=== PATIENT | male | born 1945 | race African-American/Black ===

== ENCOUNTER 2019-05-08 08:33 | Inpatient (IN) | payer MEDICARE, MEDICAID ==
[~2019-05-08] VITALS: Ht 182.2 cm; Wt 80.3 kg
[2019-05-08] MEDS ORDERED: ASPIRIN 81MG TABLET PO ONE (09:30)
[2019-05-08 10:09] LABS: BASOPHILS % 0.8 % (0.0-2.0); EOSINOPHILS % 0.5 % (0.0-5.0); HEMOGLOBIN. 13.6 g/dL (14.0-18.0); LYMPHOCYTES % 16.7 % (20.0-50.0); MEAN CORPUSCULAR VOLUME 85.2 fL (80.0-94.0); MEAN PLATELET VOLUME 7.3 fl (7.4-10.4); MONOCYTES % 7.1 % (2.0-8.0); NEUTROPHILS % 74.9 % (40.0-76.0); PLATELET 359 x1000/uL (130-400); RED BLOOD CELL COUNT 4.69 mill/uL (4.7-6.1); RED CELL DISTRIBUTION WIDTH 15.8 % (11.6-14.6)
[2019-05-08 10:12] LABS: CHLORIDE 104 mEq/L (98-107)
[2019-05-08] MEDS ORDERED: GUAIFENESIN 200MG/10ML SUGAR FREE UDC PO PRN (12:45)
[2019-05-08] MEDS ORDERED: ONDANSETRON HCL 4MG/2ML INJ IV PRN (12:45)
[2019-05-08] MEDS ORDERED: KETOROLAC 15MG/ML VIAL IV PRN (12:45)
[2019-05-08] MEDS ORDERED: LORAZEPAM 0.5MG TABLET PO PRN (12:45)
[2019-05-08] MEDS ORDERED: ACETAMINOPHEN 325MG TABLET PO PRN (12:45)
[2019-05-08] MEDS ORDERED: CLONIDINE 0.1MG TABLET PO PRN (12:45)
[2019-05-08] MEDS ORDERED: IPRATROPIUM/ALBUTEROL 0.5-3(2.5)MG/3ML NEB NEB PRN (12:45)
[2019-05-08] MEDS ORDERED: NITROGLYCERIN 0.4MG TABLET SL SL PRN (12:45)
[2019-05-08] MEDS ORDERED: DOCUSATE SODIUM 100MG CAPSULE PO PRN (12:45)
[2019-05-08] MEDS ORDERED: MAGNESIUM/ALUMINUM HYDROXIDE/SIMETHICONE 30ML UDC PO PRN (12:45)
[2019-05-08] MEDS ORDERED: ENOXAPARIN 40MG/0.4ML SYR SUBCUT SCH (12:45)
[2019-05-08] MEDS ORDERED: ENOXAPARIN 40MG/0.4ML SYR SUBCUT ONE (12:51)
[2019-05-08 15:36] LABS: ETHANOL BLOOD < 10 mg/dL
[2019-05-08 15:38] LABS: TOTAL IRON BINDING CAPACITY 245 ug/dL (250-450)
[2019-05-08 15:39] LABS: LDL CHOLESTEROL 97 mg/dL (5-100)
[2019-05-08 15:40] LABS: HDL CHOLESTEROL 39 mg/dL (40-59)
[2019-05-08 15:44] LABS: CREATINE KINASE 202 IU/L (39-308)
[2019-05-08 15:56] LABS: FOLIC ACID (FOLATE) SERUM 11.9 ng/mL (>5.38)
[2019-05-08 16:35] VITALS: BP 125/70
[2019-05-08 18:00] VITALS: BP 125/70
[2019-05-08] MEDS: TRAMADOL 50MG TABLET PO PRN (18:28)
[2019-05-08 20:00] VITALS: BP 146/76
[2019-05-08] MEDS ORDERED: ZOLPIDEM TARTRATE 5MG TABLET PO PRN (21:00)
[2019-05-08] MEDS: FAMOTIDINE 20MG TABLET PO SCH (21:32)
[2019-05-08] MEDS: METOPROLOL TARTRATE 25MG TABLET PO SCH (21:32)
[2019-05-09] VITALS (8 sets, daily range): BP systolic 112–151; BP diastolic 48–80
[2019-05-09] MEDS: METOPROLOL TARTRATE 25MG TABLET PO SCH ×2 (08:18→20:51)
[2019-05-09] MEDS: ASPIRIN 325MG EC TABLET PO SCH (08:18)
[2019-05-09] MEDS: FAMOTIDINE 20MG TABLET PO SCH ×2 (08:18→20:51)
[2019-05-09] MEDS: ENOXAPARIN 40MG/0.4ML SYR SUBCUT SCH (08:19)
[2019-05-09 14:16] LABS: *AMPHETAMINES SCREEN URINE NEGATIVE (NEGATIVE); *BARBITURATES SCREEN URINE NEGATIVE (NEGATIVE)
[2019-05-09 14:17] LABS: *BENZODIAZEPINES SCREEN URINE NEGATIVE (NEGATIVE); *COCAINE SCREEN URINE PRESUMTIVE POSITIVE (NEGATIVE); CANNABINOID URINE SCREEN NEGATIVE (NEGATIVE); METHADONE URINE SCREEN NEGATIVE (NEGATIVE); OPIATES URINE SCREEN NEGATIVE (NEGATIVE); PHENCYCLIDINE URINE SCREEN NEGATIVE (NEGATIVE)
[2019-05-09] MEDS: TRAMADOL 50MG TABLET PO PRN (16:53)
[2019-05-09] MEDS ORDERED: PNEUMOCOCCAL 23-VAL P-SAC VAC 0.5 ML IM ONE (17:00)
[2019-05-10] VITALS: BP 138/62
[2019-05-10 04:00] VITALS: BP 96/54
[2019-05-10 08:00] VITALS: BP 133/82
[2019-05-10] MEDS: ASPIRIN 325MG EC TABLET PO SCH (09:36)
[2019-05-10] MEDS: METOPROLOL TARTRATE 25MG TABLET PO SCH ×2 (09:36→22:07)
[2019-05-10] MEDS: FAMOTIDINE 20MG TABLET PO SCH ×2 (09:36→22:08)
[2019-05-10] MEDS: ENOXAPARIN 40MG/0.4ML SYR SUBCUT SCH (11:03)
[2019-05-10 11:54] VITALS: BP 103/66
[2019-05-10 16:00] VITALS: BP 134/75
[2019-05-10 20:00] VITALS: BP 149/98
[2019-05-11 00:29] VITALS: BP 128/76
[2019-05-11 04:33] VITALS: BP 130/68
[2019-05-11 08:00] VITALS: BP 142/61
[2019-05-11] MEDS: ASPIRIN 325MG EC TABLET PO SCH (08:17)
[2019-05-11] MEDS: FAMOTIDINE 20MG TABLET PO SCH (08:17)
[2019-05-11] MEDS: METOPROLOL TARTRATE 25MG TABLET PO SCH (08:17)
[2019-05-11] MEDS: ENOXAPARIN 40MG/0.4ML SYR SUBCUT SCH (08:18)
[2019-05-11 12:00] VITALS: BP 114/73
== END 2019-05-11 14:34 | DRG 192 ==
LOC: ER 08:33 → EDBEDREQ 12:03 → SUPCPDRO 12:32 → ENRESERV 15:51 → 5WST 16:36
PROVIDERS: ADMIT Internal Medicine; ATTEND Internal Medicine
DX: J44.1 Chronic obstructive pulmonary disease with (acute) exacerbation (principal); D63.8 Anemia in other chronic diseases classified elsewhere; F17.210 Nicotine dependence, cigarettes, uncomplicated; I10 Essential (primary) hypertension; R07.89 Other chest pain; I25.2 Old myocardial infarction; Z59.0 Homelessness
CPT/HCPCS: 36415; 71045; 73130; 80053; 80061; 80305; 80320; 82550; 82553; 82607; 82746; 83036; 83540; 83550; 83880; 84443; 84484; 85025; 93005; 93306; 93970; 99285; J1650; J1885; G0480

== ENCOUNTER 2025-03-24 08:53 | Inpatient (IN) | payer MEDICARE, MEDICAID ==
[~2025-03-24] VITALS: Ht 172.7 cm; Wt 77.6 kg
[~2025-03-24 08:53] MED LIST: AMLO10TA80 PO; KEPP500 MT; LIP40 PO; LOSA25TA26 PO
[2025-03-24 09:53] LABS: BASOPHILS % 0.6 % (0.0-2.0); EOSINOPHILS % 0.3 % (0.0-5.0); HEMATOCRIT. 42.1 % (42.0-52.0); HEMOGLOBIN. 13.7 g/dL (14.0-18.0); LYMPHOCYTES % 15.2 % (20.0-50.0); MEAN PLATELET VOLUME 7.7 fl (7.4-10.4); MONOCYTES % 5.8 % (2.0-8.0); NEUTROPHILS % 78.1 % (40.0-76.0); PLATELET 311 x1000/uL (130-400); RED BLOOD CELL COUNT 4.73 mill/uL (4.7-6.1); RED CELL DISTRIBUTION WIDTH 15.4 % (11.6-14.6)
[2025-03-24 10:07] LABS: CREATININE 0.9 mg/dL (0.6-1.3)
[2025-03-24 10:08] LABS: ETHANOL BLOOD < 10 mg/dL (<10); UREA NITROGEN BLOOD 7 mg/dL (9-23)
[2025-03-24 10:09] LABS: ASPARTATE AMINOTRANSFERASE 39 IU/L (<34)
[2025-03-24 10:10] LABS: BILIRUBIN DIRECT 0.2 mg/dL (<=3.0); BILIRUBIN TOTAL 0.6 mg/dL (0.1-1.0); PROTEIN TOTAL 8.1 g/dL (6.0-8.3)
[2025-03-24] MEDS: LEVETIRACETAM 1000MG PREMIX 100 ML IV ONE (10:14)
[2025-03-24] MEDS: DEXTROSE 50% WATER 50ML SYRINGE IV ONE (10:45)
[2025-03-24] MEDS: INSULIN REGULAR (HUMULIN R) 1000UNITS/10ML VIAL IV ONE (10:49)
[2025-03-24] MEDS: ALBUTEROL (0.5%) 2.5MG/0.5ML NEB HHN ONE (10:59)
[2025-03-24 12:00] VITALS: PULSE 98; RESP 18; O2SAT 98
[2025-03-24] MEDS ORDERED: ONDANSETRON HCL 4MG/2ML INJ IV PRN (13:00)
[2025-03-24] MEDS ORDERED: GUAIFENESIN 200MG/10ML SUGAR FREE UDC PO PRN (13:00)
[2025-03-24] MEDS ORDERED: DOCUSATE SODIUM 100MG CAPSULE PO PRN (13:00)
[2025-03-24] MEDS ORDERED: ACETAMINOPHEN 325MG TABLET PO PRN (13:00)
[2025-03-24] MEDS ORDERED: MAGNESIUM/ALUMINUM HYDROXIDE/SIMETHICONE 30ML UDC PO PRN (13:00)
[2025-03-24] MEDS ORDERED: LORAZEPAM 2MG/ML UD SYRINGE IV PRN (14:15)
[2025-03-24] MEDS ORDERED: DEXTROSE 50% WATER 50ML SYRINGE IV PRN (14:30)
[2025-03-24] MEDS ORDERED: NALOXONE HCL 1MG/ML 2ML VIAL IV SCH ×2 (14:45)
[2025-03-24 15:07] LABS: BG BASE EXCESS 0.0 mmol/L (-2.0-3.0); BG CARBOXYHEMOGLOBIN 0.3 % (0.5-1.5); BG DEOXYHEMOGLOBIN 4.0 % (0.0-5.0); BG FRACTION INSPIRED OXYGEN 21; BG HCO3 ACT 23.3 mmol/L (21.0-28.0); BG METHEMOGLOBIN 0.2 % (0.5-1.5); BG OXYGEN SATURATION 96.0 % (94.0-98.0); BG OXYHEMOGLOBIN 95.5 % (94.0-98.0); BG PCO2 33.9 mmHg (35.0-48.0); BG PH 7.455 (7.350-7.450); BG PO2 80.4 mmHg (83.0-108.0); BG SAMPLE SITE RIGHT BRACHIAL; BG TOTAL HEMOGLOBIN 14.2 g/dL (13.5-17.5); BG VENT MODE ROOM AIR
[2025-03-24] MEDS: IPRATROPIUM/ALBUTEROL 0.5-3(2.5)MG/3ML NEB HHN PRN (17:15)
[2025-03-24 17:16] VITALS: PULSE 78; RESP 22; O2SAT 96
[2025-03-24 20:00] VITALS: BP 144/70; PULSE 96; RESP 18; TEMP 36.2; O2SAT 98
[2025-03-24] MEDS: DEXT 5%/0.45% NACL 1000ML 1,000 ML IV SCH (21:00)
[2025-03-24] MEDS ORDERED: LEVETIRACETAM 1,500MG in NACL 100ML PREMIX IV SCH (21:00)
[2025-03-24] MEDS: LEVETIRACETAM 1,250 MG in SODIUM CHLORIDE 0.9% 100 ML IV SCH (21:28)
[2025-03-25] VITALS (7 sets, daily range): BP systolic 129–184; BP diastolic 60–105; PULSE 60–97; RESP 16–24; TEMP 35.6–36.974; O2SAT 95–100
[2025-03-25 06:53] LABS: BASOPHILS % 0.2 % (0.0-2.0); EOSINOPHILS % 0.3 % (0.0-5.0); HEMATOCRIT. 39.9 % (42.0-52.0); HEMOGLOBIN. 13.2 g/dL (14.0-18.0); LYMPHOCYTES % 10.8 % (20.0-50.0); MEAN PLATELET VOLUME 8.0 fl (7.4-10.4); MONOCYTES % 7.1 % (2.0-8.0); NEUTROPHILS % 81.6 % (40.0-76.0); PLATELET 285 x1000/uL (130-400); RED BLOOD CELL COUNT 4.54 mill/uL (4.7-6.1); RED CELL DISTRIBUTION WIDTH 15.1 % (11.6-14.6)
[2025-03-25 07:01] LABS: CREATININE 0.8 mg/dL (0.6-1.3); UREA NITROGEN BLOOD 6 mg/dL (9-23)
[2025-03-25] MEDS: DEXTROSE 5% WATER 1,000 ML IV SCH (08:45)
[2025-03-25] MEDS ORDERED: CEFEPIME 1GM IN DEXT 5% 50ML IV SCH (09:00)
[2025-03-25] MEDS: PANTOPRAZOLE SODIUM 40 MG/VIAL IV SCH (09:20)
[2025-03-25] MEDS: KCL 20MEQ/100ML PREMIX 100 ML IV SCH (12:41)
[2025-03-25] MEDS: LACTULOSE 20G/30ML UDC PO SCH (14:00)
[2025-03-25 14:29] LABS: HEPATITIS A AB IGM NEGATIVE (Negative); HEPATITIS B CORE AB IGM NEGATIVE (Negative)
[2025-03-25 14:30] LABS: HEPATITIS C AB NON REACTIVE (Neg) (Negative)
[2025-03-25] MEDS: CEFEPIME 2GM/100ML 100 ML IV SCH (14:30)
[2025-03-25] MEDS: AMLODIPINE 10MG TABLET PO SCH (16:56)
[2025-03-25] MEDS: LACTULOSE ENEMA 1,000ML BOTTLE PR SCH (20:00)
[2025-03-26] VITALS: BP 159/90; PULSE 88; RESP 18; TEMP 36.7; O2SAT 98
[2025-03-26 04:00] VITALS: BP 156/80; PULSE 84; RESP 18; TEMP 37; O2SAT 99
[2025-03-26 08:00] VITALS: BP 187/110; PULSE 94; RESP 20; TEMP 36.3; O2SAT 98
[2025-03-26] MEDS: ACETAMINOPHEN 325MG TABLET PO PRN (11:41)
[2025-03-26 12:00] VITALS: BP 140/119; PULSE 65; RESP 15; TEMP 36.3; O2SAT 97
[2025-03-26] MEDS: ENOXAPARIN 80MG/0.8ML SYR SUBCUT SCH (12:50)
[2025-03-26] MEDS ORDERED: NALOXONE HCL 0.4MG/ML VIAL IV PRN (15:45)
[2025-03-26 16:00] VITALS: BP 147/72; PULSE 97; RESP 15; TEMP 36.4; O2SAT 97
[2025-03-26] MEDS ORDERED: POLYETHYLENE GLYCOL 3350 (17GM) 1 DOSE PACK PO PRN (17:15)
[2025-03-26] MEDS: LOSARTAN 50 MG TABLET PO SCH (17:47)
[2025-03-26] MEDS: TAMSULOSIN HCL 0.4MG SR CAPSULE PO SCH (19:37)
[2025-03-26 20:00] VITALS: BP 149/79; PULSE 78; RESP 18; TEMP 36.3; O2SAT 99
[2025-03-26] MEDS: MORPHINE SULFATE 2 MG/ML INJ (NOT FOR IM USE) IV PRN (20:57)
[2025-03-26] MEDS: TRAZODONE HCL 50MG TABLET PO PRN (20:57)
[2025-03-26] MEDS: MELATONIN 3MG TABLET PO SCH (20:58)
[2025-03-27] VITALS: BP 157/85; PULSE 85; RESP 18; TEMP 36; O2SAT 99
[2025-03-27 02:18] LABS: CREATININE 0.7 mg/dL (0.6-1.3); UREA NITROGEN BLOOD < 5 mg/dL (9-23)
[2025-03-27 04:00] VITALS: BP 135/72; PULSE 81; RESP 18; TEMP 36.3; O2SAT 98
[2025-03-27] MEDS: POTASSIUM CHLORIDE 40 MEQ in DEXTROSE 5% WATER 980 ML IV SCH (04:50)
[2025-03-27 06:59] LABS: PLATELET 256 x1000/uL (130-400); RED BLOOD CELL COUNT 4.23 mill/uL (4.7-6.1); RED CELL DISTRIBUTION WIDTH 14.8 % (11.6-14.6)
[2025-03-27 07:09] LABS: CREATININE 0.6 mg/dL (0.6-1.3); UREA NITROGEN BLOOD < 5 mg/dL (9-23)
[2025-03-27 08:00] VITALS: BP 133/77; PULSE 79; RESP 16; TEMP 36.3; O2SAT 99
[2025-03-27] MEDS: ENOXAPARIN 80MG/0.8ML SYR SUBCUT NR (10:45)
[2025-03-27] MEDS: MAGNESIUM 1 G PREMIX 100 ML IV NR (11:21)
[2025-03-27 12:00] VITALS: BP 133/69; PULSE 75; RESP 16; TEMP 36.4; O2SAT 98
[2025-03-27 16:00] VITALS: BP 119/74; PULSE 77; RESP 18; TEMP 36.6; O2SAT 97
[2025-03-27] MEDS ORDERED: DEXT 5%/0.9% NACL 1,000 ML IV SCH (18:15)
[2025-03-27 20:00] VITALS: BP 135/71; PULSE 59; RESP 18; TEMP 36.2; O2SAT 94
[2025-03-27] MEDS ORDERED: LACTULOSE ENEMA 1,000ML BOTTLE PR NR (20:00)
[2025-03-27] MEDS: DEXT 5%/0.45% NACL 1000ML 1,000 ML IV SCH (20:08)
[2025-03-27 22:19] LABS: COLOR URINE YELLOW (YELLOW)
[2025-03-27 22:20] LABS: GLUCOSE URINE NEGATIVE (NEGATIVE); KETONES URINE NEGATIVE (NEGATIVE); LEUKOCYTE ESTERASE URINE 3+ (NEGATIVE); NITRITE URINE POSITIVE (NEGATIVE); OCCULT BLOOD URINE TRACE (NEGATIVE); PH URINE 7.0 (4.5-8.0); PROTEIN URINE 1+ (NEGATIVE); SPECIFIC GRAVITY URINE 1.013 (1.005-1.030); UROBILINOGEN URINE 0.2 E.U./dL (0.2-1.0)
[2025-03-27 22:49] LABS: CLARITY URINE SL HAZY (CLEAR)
[2025-03-27 22:51] LABS: RBC URINE NONE SEEN /hpf (0-2); WBC URINE 15-25 /hpf (0-2)
[2025-03-27 22:52] LABS: BACTERIA URINE TRACE; MUCUS URINE TRACE /lpf (NONE/TRACE); SQUAMOUS EPITHELIAL CELL URINE 2+ /lpf (RARE/1+)
[2025-03-28] VITALS: BP 149/85; PULSE 70; RESP 18; TEMP 36.8; O2SAT 92
[2025-03-28 04:00] VITALS: BP 151/79; PULSE 72; RESP 18; TEMP 35.9; O2SAT 99
[2025-03-28 07:04] LABS: CREATININE 0.7 mg/dL (0.6-1.3); UREA NITROGEN BLOOD < 5 mg/dL (9-23)
[2025-03-28 07:12] LABS: INR 1.1
[2025-03-28 07:23] LABS: BASOPHILS % 0.3 % (0.0-2.0); EOSINOPHILS % 3.7 % (0.0-5.0); HEMATOCRIT. 37.5 % (42.0-52.0); HEMOGLOBIN. 12.6 g/dL (14.0-18.0); LYMPHOCYTES % 20.5 % (20.0-50.0); MEAN PLATELET VOLUME 8.1 fl (7.4-10.4); MONOCYTES % 8.6 % (2.0-8.0); NEUTROPHILS % 66.9 % (40.0-76.0); PLATELET 248 x1000/uL (130-400); RED BLOOD CELL COUNT 4.24 mill/uL (4.7-6.1); RED CELL DISTRIBUTION WIDTH 14.8 % (11.6-14.6)
[2025-03-28 08:00] VITALS: BP 124/65; PULSE 60; RESP 18; TEMP 36.5; O2SAT 100
[2025-03-28] MEDS: ENOXAPARIN 80MG/0.8ML SYR SUBCUT SCH (09:15)
[2025-03-28] MEDS: PIPERACILLIN/TAZO 3.375G/50ML 50 ML IV SCH (11:04)
[2025-03-28 12:00] VITALS: BP 138/61; PULSE 69; RESP 18; TEMP 36.6; O2SAT 99
[2025-03-28 16:00] VITALS: BP 174/99; PULSE 83; RESP 18; TEMP 37.1; O2SAT 96
[2025-03-28] MEDS: LORAZEPAM 2MG/ML UD SYRINGE IV SCH (18:11)
[2025-03-29 04:00] VITALS: BP 131/74; PULSE 88; RESP 18; TEMP 36.3; O2SAT 98
[2025-03-29 08:00] VITALS: BP 136/74; PULSE 79; RESP 15; TEMP 36.2; O2SAT 96
[2025-03-29 11:50] LABS: PLATELET 198 x1000/uL (130-400); RED BLOOD CELL COUNT 4.31 mill/uL (4.7-6.1); RED CELL DISTRIBUTION WIDTH 14.9 % (11.6-14.6)
[2025-03-29 12:00] VITALS: BP 149/67; PULSE 74; RESP 16; TEMP 36.2; O2SAT 98
[2025-03-29 12:05] LABS: CREATININE 0.6 mg/dL (0.6-1.3); UREA NITROGEN BLOOD < 5 mg/dL (9-23)
[2025-03-29 16:00] VITALS: BP 160/70; PULSE 88; RESP 16; TEMP 36.6; O2SAT 98
[2025-03-29 20:00] VITALS: BP 126/54; PULSE 57; RESP 16; TEMP 35.9; O2SAT 97
[2025-03-29] MEDS: GLYCOPYRROLATE 1MG TABLET NG SCH (22:00)
[2025-03-30] VITALS: BP 163/67; PULSE 94; RESP 16; TEMP 36.5; O2SAT 97
[2025-03-30 04:00] VITALS: BP 154/71; PULSE 83; RESP 17; TEMP 37; O2SAT 96
[2025-03-30 08:00] VITALS: BP 156/84; PULSE 90; RESP 16; TEMP 36.3; O2SAT 100
[2025-03-30 08:32] LABS: PLATELET 247 x1000/uL (130-400); RED BLOOD CELL COUNT 4.07 mill/uL (4.7-6.1); RED CELL DISTRIBUTION WIDTH 14.6 % (11.6-14.6)
[2025-03-30 08:52] LABS: CREATININE 0.7 mg/dL (0.6-1.3); UREA NITROGEN BLOOD < 5 mg/dL (9-23)
[2025-03-30 12:00] VITALS: BP 140/88; PULSE 82; RESP 16; TEMP 36.3; O2SAT 100
[2025-03-30 16:00] VITALS: BP 148/75; PULSE 96; RESP 16; TEMP 36.3; O2SAT 99
[2025-03-30] MEDS: KCL 20MEQ/100ML PREMIX 100 ML IV SCH (17:48)
[2025-03-30 20:00] VITALS: BP 140/77; PULSE 102; RESP 18; TEMP 37.2; O2SAT 97
[2025-03-31] VITALS: BP 156/78; PULSE 73; RESP 18; TEMP 36.3; O2SAT 94
[2025-03-31 04:00] VITALS: BP 170/75; PULSE 65; RESP 17; TEMP 36.3; O2SAT 96
[2025-03-31 08:00] VITALS: BP 176/73; PULSE 54; RESP 16; TEMP 36.6; O2SAT 100
[2025-03-31] MEDS: HYDRALAZINE 20MG/ML VIAL IV PRN (10:06)
[2025-03-31 10:41] LABS: PLATELET 265 x1000/uL (130-400); RED BLOOD CELL COUNT 4.06 mill/uL (4.7-6.1); RED CELL DISTRIBUTION WIDTH 14.7 % (11.6-14.6)
[2025-03-31 11:24] LABS: CREATININE 0.8 mg/dL (0.6-1.3)
[2025-03-31 11:25] LABS: UREA NITROGEN BLOOD < 5 mg/dL (9-23)
[2025-03-31 12:00] VITALS: BP 103/67; PULSE 95; RESP 16; TEMP 36.4; O2SAT 100
[2025-03-31 16:00] VITALS: BP 159/78; PULSE 94; RESP 16; TEMP 36.5; O2SAT 100
[2025-03-31] MEDS: KCL 20MEQ/100ML PREMIX 100 ML IV SCH (17:26)
[2025-03-31 20:00] VITALS: BP 130/73; PULSE 102; RESP 17; TEMP 36.3; O2SAT 100
[2025-04-01 00:21] VITALS: BP 142/70; PULSE 81; RESP 20; TEMP 36.5; O2SAT 98
[2025-04-01 04:16] VITALS: BP 140/87; PULSE 67; RESP 17; TEMP 36.2; O2SAT 96
[2025-04-01 08:00] VITALS: BP 137/60; PULSE 65; RESP 18; TEMP 36.7; O2SAT 98
[2025-04-01 12:48] VITALS: BP 115/62; PULSE 60; RESP 18; TEMP 36.6; O2SAT 100
[2025-04-01 16:00] VITALS: BP 166/80; PULSE 75; RESP 18; TEMP 36.9; O2SAT 98
[2025-04-01 20:00] VITALS: BP 154/84; PULSE 92; RESP 16; TEMP 36.3; O2SAT 97
[2025-04-02] VITALS (8 sets, daily range): BP systolic 113–171; BP diastolic 57–86; PULSE 69–99; RESP 16–24; TEMP 36.2–37.1; O2SAT 95–100
[2025-04-02] MEDS: DEXT 5%/0.45% NACL 1000ML 1,000 ML IV SCH
[2025-04-02 06:24] LABS: INR 1.1
[2025-04-02 06:28] LABS: CREATININE 0.7 mg/dL (0.6-1.3); UREA NITROGEN BLOOD < 5 mg/dL (9-23)
[2025-04-02 06:30] LABS: ASPARTATE AMINOTRANSFERASE 24 IU/L (<34); BILIRUBIN TOTAL 0.4 mg/dL (0.1-1.0); PROTEIN TOTAL 7.5 g/dL (6.0-8.3)
[2025-04-02 06:48] LABS: BASOPHILS % 0.4 % (0.0-2.0); EOSINOPHILS % 1.5 % (0.0-5.0); HEMATOCRIT. 37.7 % (42.0-52.0); HEMOGLOBIN. 12.5 g/dL (14.0-18.0); LYMPHOCYTES % 19.1 % (20.0-50.0); MEAN PLATELET VOLUME 7.7 fl (7.4-10.4); MONOCYTES % 12.1 % (2.0-8.0); NEUTROPHILS % 66.9 % (40.0-76.0); PLATELET 276 x1000/uL (130-400); RED BLOOD CELL COUNT 4.31 mill/uL (4.7-6.1); RED CELL DISTRIBUTION WIDTH 14.8 % (11.6-14.6)
[2025-04-02] MEDS ORDERED: PROPOFOL 200MG/20ML VIAL IV ONE (09:50)
[2025-04-02] MEDS ORDERED: CEFAZOLIN SODIUM 1000MG/VIAL ONE (09:50)
[2025-04-02] MEDS: IPRATROPIUM/ALBUTEROL 0.5-3(2.5)MG/3ML NEB HHN SCH (11:17)
[2025-04-03] VITALS (12 sets, daily range): BP systolic 105–146; BP diastolic 63–90; PULSE 81–111; RESP 16–24; TEMP 36.1–36.8; O2SAT 94–99
[2025-04-03] MEDS: CEFAZOLIN 1000MG PREMIX 50 ML IV SCH (05:52)
[2025-04-03] MEDS: METOCLOPRAMIDE HCL 10MG/2ML VIAL IV SCH (05:55)
[2025-04-03] MEDS: ENOXAPARIN 80MG/0.8ML SYR SUBCUT SCH (10:27)
[2025-04-04] VITALS (10 sets, daily range): BP systolic 118–157; BP diastolic 66–84; PULSE 77–120; RESP 16–22; TEMP 36.4–36.6; O2SAT 96–100
[2025-04-04] MEDS ORDERED: KEPP500 GT (13:14)
[2025-04-04] MEDS ORDERED: LOSA50TA41 GT (13:14)
[2025-04-04] MEDS ORDERED: TRAZ-251 GT (13:24)
[2025-04-04] MEDS ORDERED: FAMO20TA8 GT (13:24)
[2025-04-04] MEDS ORDERED: APIX5TAB GT (13:24)
[2025-04-04] MEDS ORDERED: ACETAMINOPHEN 650MG/20.3ML UDC GT PRN (13:45)
[2025-04-04] MEDS: ACETAMINOPHEN 650MG/20.3ML UDC GT PRN (17:53)
[2025-04-04] MEDS ORDERED: T3 PO (19:02)
[2025-04-04] MEDS: LEVETIRACETAM 500MG/5ML CUP GT SCH (21:44)
[2025-04-04] MEDS: DOXAZOSIN MESYLATE 2MG TABLET GT SCH (22:13)
[2025-04-05] VITALS: BP 134/53; PULSE 108; RESP 18; TEMP 37.1; O2SAT 96
[2025-04-05 00:46] VITALS: PULSE 97; RESP 20; O2SAT 97
[2025-04-05 04:00] VITALS: BP 110/52; PULSE 98; RESP 17; TEMP 37.2; O2SAT 99
[2025-04-05 04:27] VITALS: PULSE 98; RESP 20; O2SAT 97
[2025-04-05 08:00] VITALS: BP 121/70; PULSE 101; RESP 16; TEMP 36.7; O2SAT 97
[2025-04-05 09:29] VITALS: BP 121/70; PULSE 101; RESP 16; TEMP 98
== END 2025-04-05 10:53 | disposition home health service (06) | DRG 871 ==
LOC: ER 09:00 → 5WST 10:50 → EDBEDREQ 10:52 → EDBEDREQTM 10:52 → ENRESERV 12:19
PROVIDERS: ADMIT Internal Medicine; ATTEND Internal Medicine
PROC: 4A00X4Z Measurement of Central Nervous Electrical Activity, External Approach (ICD-10-PCS; 2025-03-26)
PROC: 0DB78ZX Excision of Stomach, Pylorus, Via Natural or Artificial Opening Endoscopic, Diagnostic (ICD-10-PCS; principal; 2025-04-02)
PROC: 0DH63UZ Insertion of Feeding Device into Stomach, Percutaneous Approach (ICD-10-PCS; 2025-04-02)
PROC: 5A0935A Assistance with Respiratory Ventilation, Less than 24 Consecutive Hours, High Flow/Velocity Cannula (ICD-10-PCS; 2025-04-02)
DX: A41.9 Sepsis, unspecified organism (principal); J69.0 Pneumonitis due to inhalation of food and vomit; L89.153 Pressure ulcer of sacral region, stage 3; E72.20 Disorder of urea cycle metabolism, unspecified; E87.0 Hyperosmolality and hypernatremia; I82.412 Acute embolism and thrombosis of left femoral vein; R62.7 Adult failure to thrive; R13.12 Dysphagia, oropharyngeal phase; F03.C0 Unspecified dementia, severe, without behavioral disturbance, psychotic disturbance, mood disturbance, and anxiety; I10 Essential (primary) hypertension; D64.9 Anemia, unspecified; G40.909 Epilepsy, unspecified, not intractable, without status epilepticus; F03.90 Unspecified dementia, unspecified severity, without behavioral disturbance, psychotic disturbance, mood disturbance, and anxiety; N40.0 Benign prostatic hyperplasia without lower urinary tract symptoms; E87.5 Hyperkalemia; E87.6 Hypokalemia; R73.03 Prediabetes; K29.70 Gastritis, unspecified, without bleeding; K44.9 Diaphragmatic hernia without obstruction or gangrene; Z74.01 Bed confinement status; Z86.73 Personal history of transient ischemic attack (TIA), and cerebral infarction without residual deficits; Z93.1 Gastrostomy status; Z68.26 Body mass index [BMI] 26.0-26.9, adult
CPT/HCPCS: 36415; 36600; 71045; 76700; 80048; 80053; 80076; 80320; 81003; 82140; 82375; 82542; 82805; 82962; 83036; 83605; 83735; 84132; 84145; 85025; 85027; 86705; 86709; 87340; 88305; 88312; 88313; 92610; 93005; 93970; 94070; 94640; 94664; 94760; 97162; 97165; 99291; A4606; A4615; J0360; J0690; J0692; J1650; J1815; J1953; J2060; J2270; J2312; J2470; J2543; J2704; J2765; J3475; J3480; J7040; J7050; J7060; J7070; G0480